=== PATIENT | female | born 1955 | race Caucasian/White ===

== ENCOUNTER 2017-05-03 04:16 | Emergency (ER) | payer BC ==
[2017-05-03 06:03] LABS: ADD MAN DIFF? NO
[2017-05-03] MEDS: morphine 2 MG INJ IV (06:04)
[2017-05-03] MEDS: ONDANSETRON 4 MG INJ IV ×2 (06:04→07:11)
[2017-05-03 06:10] LABS: WHITE BLOOD COUNT 11.7 10^3/ul (4.8-10.8)
[2017-05-03 06:10] LABS: BASOPHILS % 0.3 % (0.0-2.0); EOSINOPHILS % 0.1 % (0.0-7.0); HEMATOCRIT 41.7 % (37.0-47.0); HEMOGLOBIN 13.1 g/dl (12.0-16.0); LYMPHOCYTES % 17.1 % (15.0-51.0); MEAN CORPUSCULAR HGB CONC 31.4 g/dl (32.0-37.0); MONOCYTE # 0.5 10^3/ul (0.3-0.9); MONOCYTES % 3.9 % (0.0-11.0); NEUTROPHIL # 9.1 10^3/ul (1.6-7.5); NEUTROPHILS % 77.8 % (39.0-77.0); PLATELET COUNT 403 10^3/UL (140-415); RED BLOOD COUNT 4.85 10^6/ul (4.20-5.40)
[2017-05-03] MEDS: LORAZEPAM 2 MG INJ IV (07:11)
[2017-05-03 07:21] LABS: ALANINE AMINOTRANSFERASE 76 IU/L (13-69); ALBUMIN 4.5 g/dl (3.3-4.9); ALKALINE PHOSPHATASE 90 IU/L (42-121); ANION GAP 20 (8-16); ASPARTATE AMINO TRANSFERASE 48 IU/L (15-46); BILIRUBIN,INDIRECT 0.2 mg/dl (0-1.1); BILIRUBIN,TOTAL 0.2 mg/dl (0.2-1.3); BLOOD UREA NITROGEN 12 mg/dl (7-20); CALCIUM 9.4 mg/dl (8.4-10.2); CARBON DIOXIDE 22 mmol/L (21-31); CHLORIDE 106 mmol/L (97-110); CREATININE 0.63 mg/dl (0.44-1.00); GLUCOSE 187 mg/dl (70-220); LIPASE 57 U/L (23-300); POTASSIUM 4.4 mmol/L (3.5-5.1); SODIUM 144 mmol/L (135-144); TOTAL PROTEIN 7.4 g/dl (6.1-8.1)
[2017-05-03 07:22] LABS: ALBUMIN/GLOBULIN RATIO 1.55
[2017-05-03 08:12] LABS: TROPONIN-I < 0.012 ng/ml (0.00-0.12)
== END 2017-05-03 08:24 | disposition home or self-care (01) ==
LOC: E/R 04:16
DX: R11.2 Nausea with vomiting, unspecified (principal); F41.9 Anxiety disorder, unspecified; I10 Essential (primary) hypertension; R40.2142 Coma scale, eyes open, spontaneous, at arrival to emergency department; R40.2252 Coma scale, best verbal response, oriented, at arrival to emergency department; R40.2362 Coma scale, best motor response, obeys commands, at arrival to emergency department; Z87.891 Personal history of nicotine dependence
CPT/HCPCS: 36415; 74176; 80053; 83690; 84484; 85025; 93005; 96374; 96375; 96376; 99285-25

== ENCOUNTER 2017-08-31 07:24 | Emergency (ER) | payer BC ==
[2017-08-31 08:12] LABS: ADD MAN DIFF? NO
[2017-08-31 08:15] LABS: BASOPHILS % 0.2 % (0.0-2.0); EOSINOPHILS # 0.1 10^3/ul (0.0-0.5); EOSINOPHILS % 1.3 % (0.0-7.0); HEMATOCRIT 42.1 % (37.0-47.0); HEMOGLOBIN 13.6 g/dl (12.0-16.0); LYMPHOCYTES # 2.5 10^3/ul (0.8-2.9); LYMPHOCYTES % 22.6 % (15.0-51.0); MEAN CORPUSCULAR HEMOGLOBIN 27.4 pg (29.0-33.0); MEAN CORPUSCULAR HGB CONC 32.3 g/dl (32.0-37.0); MEAN CORPUSCULAR VOLUME 84.7 fl (82.0-101.0); MEAN PLATELET VOLUME 9.3 fl (7.4-10.4); MONOCYTE # 0.6 10^3/ul (0.3-0.9); MONOCYTES % 5.7 % (0.0-11.0); NEUTROPHIL # 7.8 10^3/ul (1.6-7.5); NEUTROPHILS % 69.8 % (39.0-77.0); PLATELET COUNT 388 10^3/UL (140-415); RED BLOOD COUNT 4.97 10^6/ul (4.20-5.40); RED CELL DISTRIBUTION WIDTH 13.7 % (11.5-14.5)
[2017-08-31 08:15] LABS: WHITE BLOOD COUNT 11.2 10^3/ul (4.8-10.8)
[2017-08-31] MEDS: SOD CHLORIDE 0.9% 1,000 ML IV (08:15)
[2017-08-31] MEDS: ONDANSETRON 4 MG INJ IV (08:16)
[2017-08-31] MEDS: METOCLOPRAMIDE 10 MG INJ IV (08:16)
[2017-08-31] MEDS: DIPHENHYDRAMINE 50 MG INJ IV (08:16)
[2017-08-31 08:35] LABS: ALANINE AMINOTRANSFERASE 82 IU/L (13-69); ALBUMIN 4.4 g/dl (3.3-4.9); ALBUMIN/GLOBULIN RATIO 1.18; ALKALINE PHOSPHATASE 81 IU/L (42-121); ANION GAP 17 (8-16); ASPARTATE AMINO TRANSFERASE 64 IU/L (15-46); BILIRUBIN,INDIRECT 0.6 mg/dl (0-1.1); BILIRUBIN,TOTAL 0.6 mg/dl (0.2-1.3); BLOOD UREA NITROGEN 15 mg/dl (7-20); CALCIUM 9.7 mg/dl (8.4-10.2); CARBON DIOXIDE 25 mmol/L (21-31); CHLORIDE 105 mmol/L (97-110); CREATININE 0.76 mg/dl (0.44-1.00); GLUCOSE 121 mg/dl (70-220); LIPASE 49 U/L (23-300); POTASSIUM 4.2 mmol/L (3.5-5.1); SODIUM 143 mmol/L (135-144); TOTAL PROTEIN 8.1 g/dl (6.1-8.1)
[2017-08-31 08:43] LABS: ADD UMIC NO; UR ASCORBIC ACID NEGATIVE (NEGATIVE); UR BILIRUBIN (Dip) NEGATIVE (NEGATIVE); UR BLOOD (Dip) NEGATIVE (NEGATIVE); UR CLARITY CLEAR (CLEAR); UR COLOR YELLOW (YELLOW); UR GLUCOSE (Dip) NEGATIVE (NEGATIVE); UR KETONES (Dip) NEGATIVE (NEGATIVE); UR LEUKOCYTE ESTERASE (Dip) NEGATIVE Leu/ul (NEGATIVE); UR NITRITE (Dip) NEGATIVE (NEGATIVE); UR SPECIFIC GRAVITY (Dip) 1.011 (1.003-1.030); UR TOTAL PROTEIN (Dip) NEGATIVE (NEGATIVE); UR UROBILINOGEN (Dip) NEGATIVE (NEGATIVE)
[2017-08-31 09:12] LABS: TROPONIN-I < 0.012 ng/ml (0.00-0.12)
== END 2017-08-31 10:22 | disposition home or self-care (01) ==
LOC: E/R 07:24
DX: R11.2 Nausea with vomiting, unspecified (principal); F41.9 Anxiety disorder, unspecified; I10 Essential (primary) hypertension
CPT/HCPCS: 36415; 80053; 81003; 83690; 84484; 85025; 93005; 96374; 96375; 99284-25

== ENCOUNTER 2018-01-12 20:03 | Emergency (ER) | payer BC ==
[2018-01-12] MEDS: FAMOTIDINE 20 MG TAB PO (21:55)
[2018-01-12] MEDS: LORAZEPAM 0.5 MG TAB PO (21:55)
[2018-01-12] MEDS: DIPHENHYDRAMINE 50 MG CAP PO (21:55)
[2018-01-12] MEDS: LORAZEPAM 2 MG INJ IM (22:56)
== END 2018-01-12 23:15 | disposition home or self-care (01) ==
LOC: E/R 23:15
DX: F41.9 Anxiety disorder, unspecified (principal); I10 Essential (primary) hypertension
CPT/HCPCS: 96372; 99284-25

== ENCOUNTER 2018-08-06 06:56 | Emergency (ER) | payer BC ==
[2018-08-06 07:29] LABS: ADD MAN DIFF? NO
[2018-08-06] MEDS: ONDANSETRON 4 MG INJ IV (07:30)
[2018-08-06 07:31] LABS: WHITE BLOOD COUNT 11.9 10^3/ul (4.8-10.8)
[2018-08-06 07:31] LABS: BASOPHILS % 0.3 % (0.0-2.0); EOSINOPHILS # 0.1 10^3/ul (0.0-0.5); EOSINOPHILS % 1.1 % (0.0-7.0); HEMATOCRIT 39.4 % (37.0-47.0); HEMOGLOBIN 12.2 g/dl (12.0-16.0); LYMPHOCYTES # 2.9 10^3/ul (0.8-2.9); MEAN CORPUSCULAR HEMOGLOBIN 24.7 pg (29.0-33.0); MEAN CORPUSCULAR VOLUME 79.9 fl (82.0-101.0); MEAN PLATELET VOLUME 9.6 fl (7.4-10.4); MONOCYTE # 0.6 10^3/ul (0.3-0.9); MONOCYTES % 4.8 % (0.0-11.0); NEUTROPHIL # 8.3 10^3/ul (1.6-7.5); NEUTROPHILS % 69.1 % (39.0-77.0); PLATELET COUNT 356 10^3/UL (140-415); RED BLOOD COUNT 4.93 10^6/ul (4.20-5.40); RED CELL DISTRIBUTION WIDTH 13.4 % (11.5-14.5)
[2018-08-06] MEDS: SODIUM CHLORIDE 0.9% 1L BAG IV* (07:32)
[2018-08-06] MEDS: CEFEPIME 2GM/50 ML (PMX) 50 ML IVPB (07:40)
[2018-08-06 07:51] LABS: ALANINE AMINOTRANSFERASE 18 IU/L (13-69); ALBUMIN 4.1 g/dl (3.3-4.9); ALBUMIN/GLOBULIN RATIO 1.28; ALKALINE PHOSPHATASE 133 IU/L (42-121); ANION GAP 10 (5-13); ASPARTATE AMINO TRANSFERASE 19 IU/L (15-46); BILIRUBIN,INDIRECT 0.5 mg/dl (0-1.1); BILIRUBIN,TOTAL 0.5 mg/dl (0.2-1.3); BLOOD UREA NITROGEN 19 mg/dl (7-20); CALCIUM 10.1 mg/dl (8.4-10.2); CARBON DIOXIDE 23 mmol/L (21-31); CHLORIDE 108 mmol/L (97-110); CREATININE 0.68 mg/dl (0.44-1.00); Estimated GFR > 60 mL/min (>60); GLUCOSE 228 mg/dl (70-220); POTASSIUM 5.3 mmol/L (3.5-5.1); SODIUM 141 mmol/L (135-144); TOTAL PROTEIN 7.3 g/dl (6.1-8.1)
[2018-08-06 07:52] LABS: INR 0.99; PROTIME 13.2 Sec (11.9-14.9)
[2018-08-06 07:53] LABS: PARTIAL THROMBOPLASTIN TIME 28.7 Sec (23.0-35.0)
[2018-08-06 08:02] LABS: TROPONIN-I 0.073 ng/ml (0.000-0.120)
[2018-08-06] MEDS: LORAZEPAM 2 MG INJ IV (08:07)
[2018-08-06] MEDS: VANCOMYCIN 1 GM (PMX) 250 ML IVPB (08:21)
[2018-08-06 08:34] LABS: ADD UMIC NO; UR ASCORBIC ACID 40 mg/dL (NEGATIVE); UR BILIRUBIN (Dip) NEGATIVE (NEGATIVE); UR BLOOD (Dip) NEGATIVE (NEGATIVE); UR CLARITY SLIGHTLY CLOUDY (CLEAR); UR COLOR YELLOW (YELLOW); UR GLUCOSE (Dip) 1+ mg/dL (NEGATIVE); UR KETONES (Dip) TRACE mg/dL (NEGATIVE); UR LEUKOCYTE ESTERASE (Dip) NEGATIVE Leu/ul (NEGATIVE); UR MUCUS FEW /HPF (NONE SEEN); UR NITRITE (Dip) NEGATIVE (NEGATIVE); UR RBC 1 /HPF (0-5); UR SPECIFIC GRAVITY (Dip) 1.017 (1.003-1.030); UR SQUAMOUS EPITHELIAL CELL FEW /HPF (FEW); UR TOTAL PROTEIN (Dip) NEGATIVE (NEGATIVE); UR UROBILINOGEN (Dip) NEGATIVE (NEGATIVE); UR WBC 1 /HPF (0-5)
[2018-08-06] MEDS: METOCLOPRAMIDE 10 MG INJ IV (09:23)
[2018-08-06] MEDS ORDERED: SOD CHLORIDE 0.9% 1,000 ML IV (09:44)
[2018-08-06] MEDS ORDERED: ONDANSETRON 4 MG INJ IV ×2 (10:00→10:30)
[2018-08-06] MEDS ORDERED: ACETAMINOPHEN 325 MG TAB PO (10:00)
[2018-08-06] MEDS ORDERED: NACL 0.9% 3 ML SYG IV (10:30)
[2018-08-06] MEDS ORDERED: morphine 2 MG INJ IV (10:30)
[2018-08-06] MEDS ORDERED: FAMOTIDINE 20 MG INJ IV (21:00)
== END 2018-08-06 11:05 | disposition left against medical advice (07) ==
LOC: E/R 06:56
DX: R11.2 Nausea with vomiting, unspecified (principal); R10.9 Unspecified abdominal pain; F41.9 Anxiety disorder, unspecified; I10 Essential (primary) hypertension
CPT/HCPCS: 36415; 71045; 74176; 80053; 81001; 81003; 83605; 84484; 85025; 85610; 85730; 87040-91; 87086; 87400; 96374; 96375; 96376; 99291-25

== ENCOUNTER 2018-08-09 05:13 | Observation (INO) | payer BC ==
[2018-08-09 05:56] LABS: ADD MAN DIFF? NO
[2018-08-09 05:57] LABS: WHITE BLOOD COUNT 9.8 10^3/ul (4.8-10.8)
[2018-08-09 05:57] LABS: BASOPHILS % 0.2 % (0.0-2.0); EOSINOPHILS # 0.1 10^3/ul (0.0-0.5); EOSINOPHILS % 0.9 % (0.0-7.0); HEMOGLOBIN 10.6 g/dl (12.0-16.0); LYMPHOCYTES # 3.1 10^3/ul (0.8-2.9); LYMPHOCYTES % 31.8 % (15.0-51.0); MEAN CORPUSCULAR HEMOGLOBIN 25.2 pg (29.0-33.0); MEAN CORPUSCULAR HGB CONC 32.1 g/dl (32.0-37.0); MEAN CORPUSCULAR VOLUME 78.4 fl (82.0-101.0); MEAN PLATELET VOLUME 10.4 fl (7.4-10.4); MONOCYTE # 1.1 10^3/ul (0.3-0.9); NEUTROPHIL # 5.5 10^3/ul (1.6-7.5); NEUTROPHILS % 55.8 % (39.0-77.0); PLATELET COUNT 262 10^3/UL (140-415); RED BLOOD COUNT 4.21 10^6/ul (4.20-5.40); RED CELL DISTRIBUTION WIDTH 14.2 % (11.5-14.5)
[2018-08-09 06:16] LABS: ALANINE AMINOTRANSFERASE 21 IU/L (13-69); ALBUMIN 3.2 g/dl (3.3-4.9); ALBUMIN/GLOBULIN RATIO 1.06; ALKALINE PHOSPHATASE 89 IU/L (42-121); ANION GAP 12 (5-13); ASPARTATE AMINO TRANSFERASE 24 IU/L (15-46); BLOOD UREA NITROGEN 26 mg/dl (7-20); CALCIUM 8.9 mg/dl (8.4-10.2); CARBON DIOXIDE 24 mmol/L (21-31); CHLORIDE 107 mmol/L (97-110); CREATININE 0.65 mg/dl (0.44-1.00); Estimated GFR > 60 mL/min (>60); GLUCOSE 118 mg/dl (70-220); POTASSIUM 3.6 mmol/L (3.5-5.1); SODIUM 143 mmol/L (135-144); TOTAL PROTEIN 6.2 g/dl (6.1-8.1)
[2018-08-09] MEDS: LORAZEPAM 2 MG INJ IV ×2 (06:23→08:59)
[2018-08-09] MEDS: ACETAMINOPHEN 325 MG TAB PO ×2 (06:23→06:53)
[2018-08-09 06:27] LABS: B-TYPE NATRIURETIC PEPTIDE 4980 PG/ML (0-125); TROPONIN-I 0.103 ng/ml (0.000-0.120)
[2018-08-09] MEDS: ASPIRIN 81 MG TAB PO (07:15)
[2018-08-09] MEDS ORDERED: ONDANSETRON 4 MG INJ IV ×2 (08:00→11:30)
[2018-08-09] MEDS ORDERED: ACETAMINOPHEN 325 MG TAB PO ×2 (08:00→11:30)
[2018-08-09 11:19] LABS: CHOLESTEROL 119 mg/dl (100-200)
[2018-08-09 11:19] LABS: CHOL/HDL RATIO 4.7 RATIO; HDL CHOLESTEROL 25 mg/dl (35-98); LDL CHOLESTEROL,CALCULATED 69 mg/dl; TRIGLYCERIDES 124 mg/dl (0-149)
[2018-08-09] MEDS ORDERED: morphine 2 MG INJ IV (11:30)
[2018-08-09] MEDS ORDERED: NACL 0.9% 3 ML SYG IV (11:30)
[2018-08-09] MEDS ORDERED: DOCUSATE SODIUM 100 MG CAP PO (11:30)
[2018-08-09] MEDS ORDERED: NITROGLYCERIN (SL) 0.4 MG TAB SL (11:30)
[2018-08-09 11:36] LABS: FREE T3 7.54 pg/ml (2.77-5.27)
[2018-08-09 11:37] LABS: FREE T4 (FREE THYROXINE) 4.27 ng/dl (0.78-2.44)
[2018-08-09 11:53] LABS: THYROID STIMULATING HORMONE < 0.015 MIU/L (0.465-4.680)
[2018-08-09 12:26] LABS: IRON 34 ug/dl (35-150)
[2018-08-09 12:31] LABS: CREATINE KINASE < 20 IU/L (23-200)
[2018-08-09 12:35] LABS: % IRON SATURATION 13 % SAT (22-52); TOTAL IRON BINDING CAPACITY 268 ug/dl (241-421)
[2018-08-09 12:38] LABS: CK-MB 0.67 ng/ml (0.0-2.4); TROPONIN-I 0.063 ng/ml (0.000-0.120)
[2018-08-09] MEDS: METHIMAZOLE 5 MG TAB PO ×3 (14:43→22:29)
[2018-08-09] MEDS: SOD FERRIC GLUC COMPLX 125 MG in SOD CHLORIDE 0.9% 100 ML IVPB (16:18)
[2018-08-09 19:07] LABS: CREATINE KINASE 20 IU/L (23-200)
[2018-08-09 19:21] LABS: CK INDEX 3.2; CK-MB 0.64 ng/ml (0.0-2.4); TROPONIN-I 0.065 ng/ml (0.000-0.120)
[2018-08-09] MEDS: FAMOTIDINE 20 MG TAB PO (22:30)
[2018-08-09] MEDS: HALOPERIDOL 5 MG INJ IM (22:30)
[2018-08-10 07:25] LABS: ADD MAN DIFF? NO
[2018-08-10 07:32] LABS: WHITE BLOOD COUNT 7.9 10^3/ul (4.8-10.8)
[2018-08-10 07:32] LABS: BASOPHILS % 0.3 % (0.0-2.0); EOSINOPHILS # 0.1 10^3/ul (0.0-0.5); EOSINOPHILS % 1.5 % (0.0-7.0); HEMATOCRIT 35.5 % (37.0-47.0); HEMOGLOBIN 11.4 g/dl (12.0-16.0); LYMPHOCYTES # 2.5 10^3/ul (0.8-2.9); LYMPHOCYTES % 31.9 % (15.0-51.0); MEAN CORPUSCULAR HEMOGLOBIN 25.2 pg (29.0-33.0); MEAN CORPUSCULAR HGB CONC 32.1 g/dl (32.0-37.0); MEAN CORPUSCULAR VOLUME 78.5 fl (82.0-101.0); MEAN PLATELET VOLUME 10.3 fl (7.4-10.4); MONOCYTE # 0.7 10^3/ul (0.3-0.9); MONOCYTES % 8.3 % (0.0-11.0); NEUTROPHIL # 4.6 10^3/ul (1.6-7.5); NEUTROPHILS % 57.7 % (39.0-77.0); PLATELET COUNT 331 10^3/UL (140-415); RED BLOOD COUNT 4.52 10^6/ul (4.20-5.40)
[2018-08-10 08:10] LABS: ALANINE AMINOTRANSFERASE 22 IU/L (13-69); ALBUMIN 3.5 g/dl (3.3-4.9); ALBUMIN/GLOBULIN RATIO 1.16; ALKALINE PHOSPHATASE 90 IU/L (42-121); ANION GAP 10 (5-13); ASPARTATE AMINO TRANSFERASE 24 IU/L (15-46); BILIRUBIN,INDIRECT 0.9 mg/dl (0-1.1); BILIRUBIN,TOTAL 0.9 mg/dl (0.2-1.3); BLOOD UREA NITROGEN 13 mg/dl (7-20); CALCIUM 8.9 mg/dl (8.4-10.2); CARBON DIOXIDE 25 mmol/L (21-31); CHLORIDE 107 mmol/L (97-110); CREATININE 0.54 mg/dl (0.44-1.00); Estimated GFR > 60 mL/min (>60); GLUCOSE 93 mg/dl (70-220); MAGNESIUM 1.9 mg/dl (1.7-2.5); PHOSPHORUS 3.8 mg/dl (2.5-4.9); POTASSIUM 3.4 mmol/L (3.5-5.1); SODIUM 142 mmol/L (135-144); TOTAL PROTEIN 6.5 g/dl (6.1-8.1)
[2018-08-10] MEDS: ATENOLOL 100 MG TAB PO (08:14)
[2018-08-10] MEDS: LISINOPRIL 5 MG TAB PO (08:15)
[2018-08-10] MEDS: LORATADINE 10 MG TAB PO (08:17)
[2018-08-10] MEDS: OXYBUTYNIN (XL) 5 MG TAB PO (08:17)
[2018-08-10] MEDS: SPIRONOLACTONE 25 MG TAB PO (08:17)
[2018-08-10] MEDS: FAMOTIDINE 20 MG TAB PO (08:18)
[2018-08-10] MEDS: CHOLECALCIFEROL 2,000 UNIT CAP PO (08:18)
[2018-08-10] MEDS: ENOXAPARIN 40 MG/0.4 ML SYG SC (08:18)
[2018-08-10] MEDS: ASPIRIN (EC) 81 MG TAB PO (08:18)
[2018-08-10] MEDS ORDERED: PROPRANOLOL 10 MG TAB PO (09:00)
== END 2018-08-10 13:10 | disposition left against medical advice (07) ==
LOC: TEL 09:43 → E/R 05:13 → TEL 08:01
DX: R07.9 Chest pain, unspecified (principal); D50.9 Iron deficiency anemia, unspecified; I10 Essential (primary) hypertension; E05.90 Thyrotoxicosis, unspecified without thyrotoxic crisis or storm; N32.81 Overactive bladder; E55.9 Vitamin D deficiency, unspecified; Z91.14 Patient's other noncompliance with medication regimen; Z53.21 Procedure and treatment not carried out due to patient leaving prior to being seen by health care provider
CPT/HCPCS: 36415; 70450; 71045; 80053; 80061; 82306; 82550; 82553; 82652; 82728; 83036; 83540; 83735; 83880; 84100; 84439; 84443; 84481; 84484; 85025; 93005; 93306; 96374; 99285-25; G0378